=== PATIENT | female | born 1940 | race African-American/Black ===

== ENCOUNTER 2017-01-26 22:56 | Emergency (ER) | payer MEDICARE, OTHER ==
[~2017-01-26] VITALS: Ht 162.6 cm; Wt 95.3 kg
[2017-01-26 23:00] VITALS: BP 106/59
[2017-01-26] MEDS ORDERED: EPOGEN20000 UNI1 SUBQ (23:16)
[2017-01-26] MEDS ORDERED: ZOFRAN8 MG ORAL (23:16)
[2017-01-26] MEDS ORDERED: ZANTAC150 MG ORAL (23:16)
[2017-01-26] MEDS ORDERED: PACERONE100 MG ORAL (23:16)
[2017-01-26] MEDS ORDERED: JANUVIA25 MG ORAL (23:16)
[2017-01-26] MEDS ORDERED: LYRICA75 M1 ORAL (23:16)
[2017-01-26] MEDS ORDERED: TRAZODONE HCL50 MG ORAL (23:16)
[2017-01-26] MEDS ORDERED: SENSIPAR30 MG ORAL (23:16)
[2017-01-26] MEDS ORDERED: RENVELA0.8 GM ORAL (23:16)
[2017-01-26] MEDS ORDERED: FOLIC ACID1 MG ORAL (23:16)
[2017-01-26] MEDS ORDERED: NYSTATIN15 GM TOPIC (23:16)
[2017-01-26] MEDS ORDERED: PRAVASTATIN SOD20 M1 ORAL (23:16)
[2017-01-26] MEDS ORDERED: CLOPIDOGREL75 MG ORAL (23:16)
[2017-01-26] MEDS ORDERED: PANTOPRAZOLE SO40 MG ORAL (23:16)
[2017-01-26] MEDS ORDERED: AMITIZA24 MCG ORAL (23:16)
[2017-01-26] MEDS ORDERED: HECTOROL2 MCG/1 ML IV (23:16)
[2017-01-26 23:35] LABS: MEAN CORPUSCULAR HEMOGLOBIN 29.4 PG (27.0-31.0); MEAN CORPUSCULAR HGB CONC 30.1 G/DL (32.0-36.0); MEAN CORPUSCULAR VOLUME 98 FL (80-99); MEAN PLATELET VOLUME 6.2 FL (6.5-10.1); PLATELET COUNT 371 K/UL (150-450); RED BLOOD COUNT 2.56 M/UL (4.20-5.40); RED CELL DISTRIBUTION WIDTH 18.9 % (11.6-14.8); WHITE BLOOD COUNT 12.1 K/UL (4.8-10.8)
[2017-01-26 23:38] LABS: INR 1.3 (0.9-1.1); PROTHROMBIN TIME 12.9 SEC (9.30-11.50)
[2017-01-26 23:41] LABS: TROPONIN I < 0.30 ng/mL (<=0.30)
[2017-01-26 23:44] LABS: ALANINE AMINOTRANSFERASE 19 U/L (3-33); ALBUMIN/GLOBULIN RATIO 0.9 (1.0-2.7); ANION GAP 20 (5-15); ASPARTATE AMINO TRANSFERASE 26 U/L (5-40); CALCIUM 9.5 mg/dL (8.6-10.2); CARBON DIOXIDE 29 mEQ/L (20-30); CHLORIDE 89 mEQ/L (98-107); CREATININE 5.9 mg/dL (0.5-0.9); HEMOLYSIS 9; SODIUM 138 mEQ/L (135-145); TOTAL PROTEIN 7.6 g/dL (6.6-8.7)
[2017-01-26 23:54] LABS: CKMB 4.2 ng/mL (< 3.8)
[2017-01-27 00:18] LABS: LYMPHOCYTES % (MANUAL) 5 % (20-45); NEUTROPHILS % (MANUAL) 88 % (45-75); TOTAL CELLS COUNTED 100
[2017-01-27 00:19] LABS: ANISOCYTOSIS 2+; BAND NEUTROPHILS % (MANUAL) 0 % (0-8); BASOPHILS % (MANUAL) 0 % (0-2); EOSINOPHILS % (MANUAL) 0 % (0-3); HYPOCHROMASIA 2+; PLATELET ESTIMATE ADEQUATE; PLATELET MORPHOLOGY NORMAL
[2017-01-27 00:20] LABS: NUCLEATED RED BLOOD CELLS 2 /100 WBC
[2017-01-27 01:00] VITALS: BP 104/53
[2017-01-27 02:00] VITALS: BP 102/57
--- NOTE | 2017-01-27 02:11 | Emergency Room Report ---
History of Present Illness General Chief Complaint: Dyspnea/Respdistress Source: Patient, Medical Record Present Illness HPI This is a 76-year-old female with history hypertension and renal failure on hemodialysis. Her dialysis days are Tuesday, , and Tuesday. She scheduled for dialysis in a few hours. She presents with chief complaint of short of breath. She gets this frequently. This occurred about a couple hours ago. Worse with exertion. Better with rest. No fever or chills. No chest pain. Denies any other complaint. Allergies: Coded Allergies: ACYCLOVIR (Verified Allergy, Unknown, 01/26/17) HYDROMORPHONE (Verified Allergy, Unknown, 01/26/17) LEVOFLOXACIN (Verified Allergy, Unknown, 01/26/17) Patient History Past Medical History: see triage record, old chart reviewed, HTN, renal disease , dialysis Past Surgical History: other Pertinent Family History: none Social History: Denies: smoking Last Menstrual Period: n/a Now: No Immunizations: other Reviewed Nursing Documentation: PMH: Agreed, PSxH: Agreed Nursing Documentation-PMH Past Medical History: No History, Except For Hx Cardiac Problems: Yes - afib, chf, anemia, shingles, TIA, Cardiac Stent Hx Hypertension: Yes Hx Pacemaker: Yes Hx COPD: Yes Hx Diabetes: Yes - dm2 Hx Dialysis: Yes - right upper arm, Tuesday Review of Systems Eye: Denies: blurred vision, eye pain ENT: Denies: ear pain, nose congestion, throat swelling Respiratory: Reports: shortness of breath, Denies: cough Cardiovascular: Denies: chest pain, palpitations Gastrointestinal: Denies: abdominal pain, diarrhea, nausea, vomiting Musculoskeletal: Denies: back pain, joint pain Skin: Denies: rash Neurological: Denies: headache, numbness Endocrine: Denies: increased thirst, increased urine Hematologic/Lymphatic: Denies: easy bruising All Other Systems: negative except mentioned in HPI Physical Exam Vital Signs Date Time Temp Pulse Resp B/P Pulse Ox O2 Delivery O2 Flow Rate FiO2 01/26/17 22:50 98.8 80 22 106/59 100 Simple Mask 8.0 vitals unremarkable Sp02 EP Interpretation: reviewed, normal General Appearance: well appearing, alert, mild distress Head: normocephalic, atraumatic Eyes: bilateral eye EOMI, bilateral eye PERRL ENT: hearing grossly normal, normal pharynx Neck: full range of motion, supple, no meningismus Respiratory: chest non-tender, rales - faint rales at bases Cardiovascular #1: regular rate, rhythm, no murmur Gastrointestinal: normal bowel sounds, non tender, no mass, no organomegaly, no bruit, non-distended Musculoskeletal: back normal, normal range of motion Neurologic: alert, oriented x3 Psychiatric: mood/affect normal Skin: warm/dry Medical Decision Making Diagnostic Impression: Primary Impression: Fluid overload Qualified Codes: E87.70 - Fluid overload, unspecified Additional Impressions: Anemia, chronic renal failure Qualified Codes: N18.5 - Chronic kidney disease, stage 5; D63.1 - Anemia in chronic kidney disease Dyspnea Qualified Codes: R06.00 - Dyspnea, unspecified ER Course Patient presents with shortness of breath secondary fluid overloaded. She will need dialysis. She felt better now. Oxygenation 100% on 2 L here. No evidence of ACS, PE, dissection, pneumonia. She will need dialysis. I confirm that she has an appointment around 4:00 at dialysis center. We'll send her directly from here to there. This will be to put his way to get dialysis. She is agreeable to this plan. Lab Results Impression labs with anemia EKG Diagnostic Results Rate: normal Rhythm: NSR, other - Patient presents with shortness of breath secondary fluid overloaded. She will need dialysis. She felt better now. Oxygenation 100% on 2 L here. No evidence of ACS, PE, dissection, pneumonia. She will need dialysis. I confirm that she has an appointment around 4:00 at dialysis center. We'll send her directly from here to there. This will be to put his way to get dialysis. She is agreeable to this plan. ST Segments: no acute changes Rhythm Strip Diag. Results EP Interpretation: yes Rate: 80 Rhythm: NSR, no PVC's, no ectopy Chest X-Ray Diagnostic Results EP Interpretation: Yes Findings: no consolidation, no effusion, no pneumothorax, other - Cardiomegaly. Mild Vascular congestion. Number of Views: 1 Last Vital Signs Date Time Temp Pulse Resp B/P Pulse Ox O2 Delivery O2 Flow Rate FiO2 01/27/17 02:00 98.4 80 24 102/57 100 Nasal Cannula 4.0 Status: improved Disposition: [facility] Condition: Improved Referrals: NON PHYSICIAN (PCP) Additional Instructions: Go directly to dialysis. Followup with your Dr. in 2 to 3 days. Return if symptom worsen. ENRICO ARMENDARIZ M.D. Jan 27, 2017 02:11
[2017-01-27 03:00] VITALS: BP 105/56
[2017-01-27 03:15] VITALS: BP 105/56
--- NOTE | 2017-01-27 09:05 | Diagnostic Imaging Report ---
Indications: Shortness of breath Technique: AP chest Findings: Comparison: None Suboptimal inspiration, lordotic projection limits evaluation. Cardiac silhouette enlarged. Pulmonary vasculature difficult to evaluate. Mildly increased interstitial markings bilaterally. Wedge-shaped opacity left midlung. Left costophrenic angle indistinct; right sharp. Uric arch calcified. Left chest wall pacemaker, lead tips in the regions of right atrium and ventricle, respectively. IMPRESSION: Cardiomegaly compatible with dilated cardiomyopathy. Superimposed pericardial effusion not excludable. Apparent mild interstitial prominence may be technically related. An element of pulmonary edema in the setting of congestive heart failure not excludable Indistinctness of left costophrenic angle may be secondary to cardiomegaly. Pleural effusion not excludable Subsegmental atelectasis versus loculated pleural fluid left midlung Aortosclerosis Pacemaker
== END 2017-01-27 03:20 ==
LOC: EDBD 22:56 → EMR 23:19
DX: E87.70 Fluid overload, unspecified (principal); I50.9 Heart failure, unspecified; D63.1 Anemia in chronic kidney disease; N18.6 End stage renal disease; Z99.2 Dependence on renal dialysis; Z86.73 Personal history of transient ischemic attack (TIA), and cerebral infarction without residual deficits; I48.91 Unspecified atrial fibrillation; E11.9 Type 2 diabetes mellitus without complications; Z95.5 Presence of coronary angioplasty implant and graft; Z95.0 Presence of cardiac pacemaker; I12.0 Hypertensive chronic kidney disease with stage 5 chronic kidney disease or end stage renal disease
CPT/HCPCS: 36415; 71010; 80053; 82550; 82553; 84484; 85007; 85025; 85610; 93005; 99283